=== PATIENT | female | born 1985 | race American Indian/Alaskan Native ===

== ENCOUNTER 2017-08-13 14:03 | Emergency (ER) | payer MEDICAID ==
[2017-08-13 15:20] VITALS: BP 129/99
[2017-08-13] MEDS ORDERED: NORCO 7.5/325 PO ONE (16:10)
[2017-08-13] MEDS ORDERED: DECADRON IM ONE (16:10)
--- NOTE | 2017-08-13 16:14 | Emergency Department Report ---
ED General Adult HPI - General Chief complaint: Back Pain/Injury Stated complaint: LUPUS PAIN, SORE THROAT Time Seen by Provider: 08/13/17 16:02 Source: patient Mode of arrival: Ambulatory Limitations: Physical Limitation - History of Present Illness Initial comments: Patient is a 32-year-old black female with history of lupus who is presenting with exacerbation of her lupus. Patient states she has some generalized joint pain. Patient also states that she feels though immune system may be down as she has had a mild sore throat for the last 2-3 days secondary to pupillary job coughing on her. Patient denies any fever nausea vomiting diarrhea at this time. Patient states the joint pain is mostly in the wrists elbows and knees and is aching pain as a 8 out 10 in severity. Severity scale (0 -10): 0 - Related Data Previous Rx's Medication Instructions Recorded Last Taken Type HYDROcodone/APAP 5-325 [[place] 1 each PO Q6HR PRN #15 tablet 08/13/17 Unknown Rx 5/325] Prednisone [predniSONE 10 mg 10 mg PO .TAPER #1 tab.ds.pk 08/13/17 Unknown Rx (6-Day Pack, 21 Tabs)] ED Review of Systems ROS: Stated complaint: LUPUS PAIN, SORE THROAT Other details as noted in HPI Comment: All other systems reviewed and negative ED Past Medical Hx - Past Medical History Previous Medical History?: Yes Hx Hypertension: Yes Hx CVA: Yes Hx Heart Attack/AMI: Yes (2004) Hx Congestive Heart Failure: No Hx Diabetes: Yes Hx Deep Vein Thrombosis: No Hx Pulmonary Embolism: No Hx GERD: Yes Hx Liver Disease: No Hx Renal Disease: No Hx of Cancer: No Hx Sickle Cell Disease: No Hx Arthritis: No Hx Headaches / Migraines: Yes Hx Seizures: Yes Hx Kidney Stones: No Hx Psychiatric Treatment: No Hx Asthma: No Hx COPD: No Hx Tuberculosis: No Hx Dementia: No Hx HIV: No Additional medical history: vascular narcrosis of both hips endometriousis, angina - Surgical History Past Surgical History?: Yes Hx Coronary Stent: No Hx Open Heart Surgery: No Hx Pacemaker: No Hx Internal Defibrillator: No Hx Cholecystectomy: No Hx Appendectomy: Yes Hx Breast Surgery: No Additional Surgical History: two stomach surgeries, dnc - Social History Smoking Status: Never Smoker Substance Use Type: None - Medications Home Medications: Home Medications Medication Instructions Recorded Confirmed Last Taken Type HYDROcodone/APAP 5-325 [[place] 1 each PO Q6HR PRN #15 tablet 08/13/17 Unknown Rx 5/325] Prednisone [predniSONE 10 mg 10 mg PO .TAPER #1 tab.ds.pk 08/13/17 Unknown Rx (6-Day Pack, 21 Tabs)] ED Physical Exam - General Limitations: Physical Limitation General appearance: alert, in no apparent distress - Head Head exam: Present: atraumatic, normocephalic - Eye Eye exam: Present: normal appearance - ENT ENT exam: Present: mucous membranes moist - Neck Neck exam: Present: normal inspection - Respiratory Respiratory exam: Present: normal lung sounds bilaterally. Absent: respiratory distress, wheezes, rales - Cardiovascular Cardiovascular Exam: Present: regular rate, normal rhythm. Absent: systolic murmur, diastolic murmur, rubs, gallop - GI/Abdominal GI/Abdominal exam: Present: soft, normal bowel sounds. Absent: distended, tenderness, guarding, rebound - Extremities Exam Extremities exam: Present: normal inspection - Back Exam Back exam: Present: normal inspection - Neurological Exam Neurological exam: Present: alert, oriented X3 - Psychiatric Psychiatric exam: Present: normal affect, normal mood - Skin Skin exam: Present: warm, dry, intact, normal color. Absent: rash ED Course Vital Signs 08/13/17 15:12 Temperature 98.1 F Pulse Rate 96 H Respiratory 18 Rate Blood Pressure 129/99 Blood Pressure 129/99 [Right] O2 Sat by Pulse 98 Oximetry Critical care attestation.: If time is entered above; I have spent that time in minutes in the direct care of this critically ill patient, excluding procedure time. ED Disposition Clinical Impression: Exacerbation of systemic lupus, Viral pharyngitis Disposition: DC-01 TO HOME OR SELFCARE Is pt being admited?: No Does the pt Need Aspirin: No Condition: Stable Prescriptions: HYDROcodone/APAP 5-325 [[place] 5/325] 1 each PO Q6HR PRN #15 tablet PRN Reason: Pain Prednisone [predniSONE 10 mg (6-Day Pack, 21 Tabs)] 10 mg PO .TAPER #1 tab.ds.pk
== END 2017-08-13 16:38 | disposition home or self-care (01) ==
LOC: ED 14:03
DX: M32.9 Systemic lupus erythematosus, unspecified (principal); J02.9 Acute pharyngitis, unspecified; I10 Essential (primary) hypertension; E11.9 Type 2 diabetes mellitus without complications; I25.2 Old myocardial infarction; K21.9 Gastro-esophageal reflux disease without esophagitis; G43.909 Migraine, unspecified, not intractable, without status migrainosus; Z86.73 Personal history of transient ischemic attack (TIA), and cerebral infarction without residual deficits
CPT/HCPCS: 96372; 99282; J1100

== ENCOUNTER 2017-08-22 17:36 | Emergency (ER) | payer MEDICAID ==
[2017-08-22] MEDS ORDERED: PERCOCET 5/325 PO ONE (21:56)
[2017-08-22] MEDS ORDERED: DELTASONE PO ONE (21:57)
--- NOTE | 2017-08-22 22:04 | Emergency Department Report ---
ED General Adult HPI - General Chief complaint: Pain General Stated complaint: LUPUS PAIN Time Seen by Provider: 08/22/17 21:55 Source: patient Mode of arrival: Ambulatory Limitations: Physical Limitation - History of Present Illness Initial comments: 32-year-old woman with long-standing history of systemic lupus erythematosus since childhood, has had flare of lupus over the past several days, with increased pain in joints of lower extremity, predominantly hips, knees, and ankles, all of which were affected by lupus, and with avascular necrosis of the hips. She has severe pain, being 10 out of 10, localized at the hip, with only exacerbation when she moves, but no significant radiation. She's not had any fever chills or diaphoresis. This is typical location for her pains when she has flares of her lupus. She is followed by a brim ironer hand, but they do not manage pain, and she does not have an appointment with pain manager call center, with initial intake appointment scheduled for the middle of September. She usually goes to emergency department for pain, and on review of PT BMP, patient's last visit was approximately one week ago, where she had a short course of hydrocodone. Onset/Timin -: days(s) (5) Location: left, right, lower extremity Severity scale (0 -10): 8 Quality: aching, sharp Improves with: rest Worsens with: movement Associated Symptoms: denies other symptoms Treatments Prior to Arrival: none - Related Data Previous Rx's Medication Instructions Recorded Last Taken Type HYDROcodone/APAP 5-325 [[place] 1 each PO Q6HR PRN #15 tablet 08/13/17 Unknown Rx 5/325] Prednisone [predniSONE 10 mg 10 mg PO .TAPER #1 tab.ds.pk 08/13/17 Unknown Rx (6-Day Pack, 21 Tabs)] Oxycodone HCl [oxyCODONE TAB] 10 mg PO Q6H PRN #40 tablet 08/22/17 Unknown Rx predniSONE [Deltasone] 20 mg PO .TAPER #30 tab 08/22/17 Unknown Rx Allergies Allergy/AdvReac Type Severity Reaction Status Date / Time fentanyl Allergy Anaphylaxis Verified 08/22/17 22:05 ED Review of Systems ROS: Stated complaint: LUPUS PAIN Other details as noted in HPI Comment: All other systems reviewed and negative Constitutional: denies: chills, fever Eyes: denies: eye pain, eye discharge, vision change ENT: denies: ear pain, throat pain Respiratory: denies: cough, shortness of breath, wheezing Cardiovascular: denies: chest pain, palpitations Endocrine: no symptoms reported Gastrointestinal: denies: abdominal pain, nausea, diarrhea Genitourinary: denies: urgency, dysuria, discharge Musculoskeletal: as per HPI, arthralgia Skin: denies: rash, lesions Neurological: denies: headache, weakness, paresthesias Psychiatric: denies: anxiety, depression Hematological/Lymphatic: denies: easy bleeding, easy bruising ED Past Medical Hx - Past Medical History Previous Medical History?: Yes Hx Hypertension: Yes Hx CVA: Yes Hx Heart Attack/AMI: Yes (2004) Hx Congestive Heart Failure: No Hx Diabetes: Yes Hx Deep Vein Thrombosis: No Hx Pulmonary Embolism: No Hx GERD: Yes Hx Liver Disease: No Hx Renal Disease: No Hx Sickle Cell Disease: No Hx Arthritis: No Hx Headaches / Migraines: Yes Hx Seizures: Yes Hx Kidney Stones: No Hx Psychiatric Treatment: No Hx Asthma: No Hx COPD: No Hx Tuberculosis: No Hx Dementia: No Hx HIV: No Additional medical history: vascular necrosis of both hips endometriousis, angina, lupus, anxiety, manic depressive disorder, hyperlipidemia - Surgical History Past Surgical History?: Yes Hx Coronary Stent: No Hx Open Heart Surgery: No Hx Pacemaker: No Hx Internal Defibrillator: No Hx Cholecystectomy: No Hx Appendectomy: Yes Hx Breast Surgery: No Additional Surgical History: two stomach surgeries, dnc - Social History Smoking Status: Never Smoker Substance Use Type: None - Medications Home Medications: Home Medications Medication Instructions Recorded Confirmed Last Taken Type HYDROcodone/APAP 5-325 [[place] 1 each PO Q6HR PRN #15 tablet 08/13/17 Unknown Rx 5/325] Prednisone [predniSONE 10 mg 10 mg PO .TAPER #1 tab.ds.pk 08/13/17 Unknown Rx (6-Day Pack, 21 Tabs)] Oxycodone HCl [oxyCODONE TAB] 10 mg PO Q6H PRN #40 tablet 08/22/17 Unknown Rx predniSONE [Deltasone] 20 mg PO .TAPER #30 tab 08/22/17 Unknown Rx ED Physical Exam - General Limitations: Physical Limitation General appearance: in distress (obvious distress from joint pain, mostly localized to hips, right hip greater than left, increased with external rotation ) - Head Head exam: Present: atraumatic, normocephalic - Eye Eye exam: Present: PERRL, EOMI - ENT ENT exam: Present: mucous membranes moist - Neck Neck exam: Present: normal inspection, full ROM. Absent: tenderness - Respiratory Respiratory exam: Present: normal lung sounds bilaterally. Absent: respiratory distress, wheezes, rales, rhonchi - Cardiovascular Cardiovascular Exam: Present: regular rate, normal heart sounds. Absent: rubs - GI/Abdominal GI/Abdominal exam: Present: soft, normal bowel sounds. Absent: distended, tenderness - Rectal Rectal exam: Present: deferred - Extremities Exam Extremities exam: Present: tenderness (bilateral joint tenderness, hips, right greater than left, both knees, both ankles, no effusions, no erythema) - Back Exam Back exam: Present: normal inspection. Absent: CVA tenderness (R), CVA tenderness (L), vertebral tenderness - Neurological Exam Neurological exam: Present: alert, altered, CN II-XII intact. Absent: motor sensory deficit - Psychiatric Psychiatric exam: Present: normal affect, anxious - Skin Skin exam: Present: warm, dry, intact ED Course Vital Signs 08/22/17 08/22/17 08/22/17 18:06 21:37 21:39 Temperature 37.0 C 36.7 C Pulse Rate 101 H 99 H Respiratory 18 20 20 Rate Blood Pressure 125/97 Blood Pressure 136/98 [Right] O2 Sat by Pulse 99 97 97 Oximetry ED Medical Decision Making - Medical Decision Making This patient with lupus erythematosus, band established history of avascular necrosis of most of the joints of her lower extremities, for some late hips, has flare of pain with lupus flare, with patient and current acute distress, but no signs of infection, fever, or sepsis. Patient's primary need is control of her lupus, which we will do with acceleration of her prednisone to 60 mg daily until she has inflammation under control, and treat her pain with oxycodone. PDMP reviewed shows patient has only had occasional use of narcotics, last was one week ago, with small dose of hydrocodone, but limited use prior to that, and I don't believe the patient shows signs of chronic medication use or evidence of shopping for doctors. I believe that narcotic pain control is patient's best option at this time, acutely given she's had a prior history of peptic ulcer secondary to NSAID use, requiring emergency surgery in the past. - Differential Diagnosis lupus erythematosus, arthritis, Critical Care Time: No Critical care attestation.: If time is entered above; I have spent that time in minutes in the direct care of this critically ill patient, excluding procedure time. ED Disposition Clinical Impression: Chronic pain disorder Lupus (systemic lupus erythematosus) Qualifiers: Systemic lupus erythematosus type: unspecified Systemic lupus erythematosus organ involvement: unspecified Qualified Code(s): M32.9 - Systemic lupus erythematosus, unspecified Arthralgia Qualifiers: Joint pain location: hip Laterality: bilateral Qualified Code(s): M25.551 - Pain in right hip; M25.552 - Pain in left hip Disposition: TO HOME OR SELFCARE Is pt being admited?: No Does the pt Need Aspirin: No Condition: Stable Additional Instructions: We are increasing her prednisone to 60 mg daily for the next 3 days because of her lupus erythematosus flare. Once pain is under control, again decreasing every several days by 1 tablet, down to 40 mg, then after several days further, back down to your usual 20 mg daily. We have prescribed oxycodone, which she may take every 6 hours as needed for severe pain. Follow with your brim ironer hand on Thursday, as previously scheduled. Prescriptions: Oxycodone HCl [oxyCODONE TAB] 10 mg PO Q6H PRN #40 tablet PRN Reason: Pain predniSONE [Deltasone] 20 mg PO .TAPER #30 tab Referrals: PRIMARY CARE, [Primary Care Provider] - 3-5 Days Time of Disposition: 22:00
[2017-08-22 22:44] VITALS: BP 132/90
== END 2017-08-22 23:26 | disposition home or self-care (01) ==
LOC: ED 17:36
DX: M32.9 Systemic lupus erythematosus, unspecified (principal); M25.551 Pain in right hip; M25.552 Pain in left hip; I10 Essential (primary) hypertension; I25.2 Old myocardial infarction; E11.9 Type 2 diabetes mellitus without complications; K21.9 Gastro-esophageal reflux disease without esophagitis; F41.9 Anxiety disorder, unspecified; Z86.73 Personal history of transient ischemic attack (TIA), and cerebral infarction without residual deficits; Z90.49 Acquired absence of other specified parts of digestive tract
CPT/HCPCS: 82962; 99283; J7512

== ENCOUNTER 2018-03-20 03:29 | Emergency (ER) | payer MEDICAID ==
[2018-03-20] MEDS ORDERED: DILAUDID IV ONE (05:47)
[2018-03-20] MEDS ORDERED: DILAUDID IM ONE (06:22)
[2018-03-20] MEDS ORDERED: ZOFRAN IM ONE (06:22)
--- NOTE | 2018-03-20 06:27 | Emergency Department Report ---
HPI - General Chief Complaint: Pain General Time Seen by Provider: 03/20/18 06:15 - HPI HPI: Room 8 The patient is a 33-year-old female presenting with a chief complaint of lupus flare. The patient states she's had 2 days of pain in bilateral lower extr emities mostly at the joints. Patient states pain is consistent with her lupus flares. Patient denies any preceding trauma. Patient denies history of fever. The patient gets her pain score of 9/10 Location: [See above] Duration: [See above] Quality: Lupus pain Severity: 9/10 Modifying factors: [see above] Context: [see above] Mode of transportation: [not driving] ED Past Medical Hx - Past Medical History Previous Medical History?: Yes Hx Hypertension: Yes Hx CVA: Yes Hx Heart Attack/AMI: Yes (2004) Hx Diabetes: Yes Hx GERD: Yes Hx Headaches / Migraines: Yes Hx Seizures: Yes Additional medical history: vascular necrosis of both hips endometriousis, angina, lupus, anxiety, manic depressive disorder, hyperlipidemia - Surgical History Hx Appendectomy: Yes Additional Surgical History: Exploratory abdominal surgery., Ovarian mass resection - Family History Family history: no significant - Social History Smoking Status: Never Smoker Substance Use Type: None (denies illicit drug use) - Medications Home Medications: Home Medications Medication Instructions Recorded Confirmed Last Taken Type HYDROcodone/APAP 5-325 [[place] 1 each PO Q6HR PRN #15 tablet 08/13/17 Unknown Rx 5/325] Prednisone [predniSONE 10 mg 10 mg PO .TAPER #1 tab.ds.pk 08/13/17 Unknown Rx (6-Day Pack, 21 Tabs)] Oxycodone HCl [oxyCODONE TAB] 10 mg PO Q6H PRN #40 tablet 08/22/17 Unknown Rx predniSONE [Deltasone] 20 mg PO .TAPER #30 tab 08/22/17 Unknown Rx HYDROcodone/APAP 5-325 [[place] 1 - 2 each PO Q6HR PRN #14 tablet 03/20/18 Unknown Rx 5/325] Prednisone [predniSONE 10 mg 10 mg PO .TAPER #1 tab.ds.pk 03/20/18 Unknown Rx (6-Day Pack, 21 Tabs)] ED Review of Systems ROS: Stated complaint: LUPUS Other details as noted in HPI Constitutional: denies: fever Eyes: denies: eye pain ENT: denies: throat pain Respiratory: no symptoms reported Cardiovascular: denies: chest pain Endocrine: no symptoms reported Gastrointestinal: denies: abdominal pain Genitourinary: denies: dysuria Musculoskeletal: arthralgia Neurological: denies: headache Physical Exam - Physical Exam Vital Signs: Vital Signs 03/20/18 03:33 Temperature 98.3 F Pulse Rate 103 H Respiratory 14 Rate Blood Pressure 151/102 O2 Sat by Pulse 98 Oximetry Physical Exam: GENERAL: The patient is well-developed well-nourished female lying on stretcher not appearing to be in acute distress. [] HEENT: Normocephalic. Atraumatic. Patient has moist mucous membranes. NECK: Supple. Trachea midline CHEST/LUNGS: Clear to auscultation. There is no respiratory distress noted. HEART/CARDIOVASCULAR: Regular. There is no tachycardia. There is no gallop rub or murmur. ABDOMEN: Abdomen is soft, nontender. Patient has normal bowel sounds. There is no abdominal distention. SKIN: There is no rash. There is no edema. There is no diaphoresis. NEURO: The patient is awake, alert, and oriented. The patient is cooperative. The patient has normal speech MUSCULOSKELETAL: There is no evidence of acute injury. ED Course Vital Signs 03/20/18 03:33 Temperature 98.3 F Pulse Rate 103 H Respiratory 14 Rate Blood Pressure 151/102 O2 Sat by Pulse 98 Oximetry ED Medical Decision Making - Lab Data Result diagrams: 03/20/18 06:32 Laboratory Tests 03/20/18 03/20/18 06:32 06:32 Sodium 138 Potassium 3.8 Chloride 102.0 Carbon Dioxide 24 Anion Gap 16 BUN 14 Creatinine 0.6 L Estimated GFR > 60 BUN/Creatinine Ratio 23 Glucose 84 Calcium 9.0 Total Creatine Kinase 19 L Per lab: WBC 16.8 Hemoglobin 10 Hematocrit 33.6 Platelets 385 - Differential Diagnosis Lupus flare, arthritis, myalgias, rhabdomyolysis Critical care attestation.: If time is entered above; I have spent that time in minutes in the direct care of this critically ill patient, excluding procedure time. ED Disposition Clinical Impression: Lower extremity pain, bilateral Disposition: DC-01 TO HOME OR SELFCARE Is pt being admited?: No Does the pt Need Aspirin: No Condition: Stable Instructions: Arthralgia (ED) Additional Instructions: Return to the emergency department immediately should you develop worsening symptoms, fever, inability to tolerate food or liquid or any other concerns. Prescriptions: HYDROcodone/APAP 5-325 [[place] 5/325] 1 - 2 each PO Q6HR PRN #14 tablet PRN Reason: Pain Prednisone [predniSONE 10 mg (6-Day Pack, 21 Tabs)] 10 mg PO .TAPER #1 tab.ds.pk Referrals: PRIMARY CARE, [Primary Care Provider] - 3-5 Days Time of Disposition: 07:45
[2018-03-20 07:06] LABS: BUN/Creatinine Ratio 23; Blood Urea Nitrogen 14 mg/dL (7-17); Hemolysis Index 7
[2018-03-20] MEDS ORDERED: SOLU-Medrol IM ONE (07:43)
[2018-03-20] MEDS ORDERED: NORCO 5/325 PO ONE (07:43)
[2018-03-20 07:50] LABS: Mean Corpuscular HGB Conc 30 % (30-34); Mean Corpuscular Volume 80 fl (79-97); Platelet Count 387 K/mm3 (140-440); Red Cell Distribution Width 18.7 % (13.2-15.2)
[2018-03-20 07:51] LABS: Hematocrit 32.7 % (30.3-42.9); Hemoglobin 9.8 gm/dl (10.1-14.3)
[2018-03-20 08:20] VITALS: BP 137/99
[2018-03-20 09:05] LABS: Total Cells Counted 100
[2018-03-20 09:06] LABS: Basophils % (Manual) 0 % (0.0-1.8); Eosinophils % (Manual) 0 % (0.0-4.3)
[2018-03-20 09:07] LABS: Hypochromasia 1+
[2018-03-20 09:08] LABS: Platelet Estimate Consistent w Auto; Tear Drop Cells Few
== END 2018-03-20 08:20 | disposition home or self-care (01) ==
LOC: ED 03:29
DX: M79.604 Pain in right leg (principal); M79.605 Pain in left leg; M32.9 Systemic lupus erythematosus, unspecified; I10 Essential (primary) hypertension; E11.9 Type 2 diabetes mellitus without complications; K21.9 Gastro-esophageal reflux disease without esophagitis; E78.5 Hyperlipidemia, unspecified; I25.2 Old myocardial infarction; Z86.73 Personal history of transient ischemic attack (TIA), and cerebral infarction without residual deficits; Z88.4 Allergy status to anesthetic agent; Z79.899 Other long term (current) drug therapy
CPT/HCPCS: 36415; 80048; 82550; 85007; 85025; 96372; 99283; J1170; J2930